=== PATIENT | female | born 1955 | race Caucasian/White ===

== ENCOUNTER 2020-11-20 14:22 | Outpatient (RCR) | payer OTHER | END 2021-02-11 | disposition home or self-care (01) | LOC: WSOH | DX: M25.512 Pain in left shoulder (principal); E03.9 Hypothyroidism, unspecified; Z98.890 Other specified postprocedural states; F17.210 Nicotine dependence, cigarettes, uncomplicated; Y99.0 Civilian activity done for income or pay ==